=== PATIENT | female | born 1980 | race Caucasian/White ===

== ENCOUNTER 2020-12-11 13:13 | Emergency (ER) | payer BC, OTHER ==
[~2020-12-11] VITALS: Ht 162.6 cm; Wt 92.9 kg
[~2020-12-11 13:13] MED LIST: LEVO750T26 PO
--- NOTE | 2020-12-11 15:06 | NUR ---
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
--- NOTE | 2020-12-11 15:16 | NUR ---
PT ASSIGNED TO ED 06, IN AT THIS TIME
[2020-12-11] MEDS ORDERED: MORPHINE SULFATE 4 MG/ML, 1ML ONE (16:15)
[2020-12-11] MEDS ORDERED: ONDANSETRON 2MG/ML, 2ML ONE ×2 (16:15→18:38)
[2020-12-11] MEDS ORDERED: SODIUM CHLORIDE FLUSH 10ML SYR IVF ONE (16:30)
[2020-12-11] MEDS ORDERED: MORPHINE SULFATE 4 MG/ML, 1ML IVPush PRN (16:30)
[2020-12-11] MEDS ORDERED: ONDANSETRON 2MG/ML, 2ML IVPush ONE (16:30)
[2020-12-11] MEDS ORDERED: SODIUM CHLORIDE 0.9% 1,000ML IVBOLUS ONE (16:30)
--- NOTE | 2020-12-11 16:35 | NUR ---
PT SITTING UP IN GURNEY, IN MODERATE DISTRESS SECONDARY TO PAIN/VOMITING. PT REPORTS 'CONSTANT VOMITING' AND RLQ PAIN SINCE 0300 THIS AM. DENIES FEVER/BLOOD IN EMESIS OR STOOL. DENIES ABD HX/SX. 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 BP/SPO2 MONITORING IN PLACE. IV ESTABLISHED. LABS/UA COLLECTED AND SENT TO LAB. PT MEDICATED PER EMAR FOR PAIN/NAUSEA. PT/SO UPDATED TO POC AND DEMONSTRATE UNDERSTANDING
[2020-12-11 16:43] LABS: MICROSCOPIC AUTO
[2020-12-11 16:48] LABS: BASOPHILS % (AUTO) 0 % (0-1); EOSINOPHILS % (AUTO) 0 % (1-7); LYMPHOCYTES % (AUTO) 8 % (22-44); MEAN CORPUSCULAR HEMOGLOBIN 33.2 pg (27.0-34.8); MEAN CORPUSCULAR HGB CONC 34.4 g/dL (32.4-35.8); MONOCYTES % (AUTO) 2 % (2-9); NEUTROPHILS % (AUTO) 90 % (42-75); PLATELET COUNT 301 x10^3/uL (130-400); RED BLOOD COUNT 5.19 x10^6/uL (3.82-5.3); RED CELL DISTRIBUTION WIDTH 12.9 % (9.6-15.2)
[2020-12-11 16:53] LABS: ALBUMIN 4.1 g/dL (3.4-5.0); ANION GAP 13 mmol/L (5-15); CALCIUM 9.3 mg/dL (8.5-10.1); CHLORIDE 104 mmol/L (98-107)
[2020-12-11 16:58] LABS: ALANINE AMINOTRANSFERASE 42 U/L (12-78); ALKALINE PHOSPHATASE 78 U/L (45-117); BILIRUBIN,TOTAL 0.9 mg/dL (0.2-1.0); CREATININE 0.96 mg/dL (0.55-1.02); TOTAL PROTEIN 8.6 g/dL (6.4-8.2)
[2020-12-11 17:07] VITALS: BP 168/80
--- NOTE | 2020-12-11 17:07 | NUR ---
PT REPORTS SIGNIFICANT IMPROVEMNT IN NAUSEA AND PAIN WITH MEDICATIONS.
--- NOTE | 2020-12-11 17:45 | NUR ---
ERP AT BEDSIDE TO DISCUSS POC. ORDERS RECEIVED FOR CT. PT UPDATED AND DEMONSTRATES UNDERSTANDING.
--- NOTE | 2020-12-11 18:06 | NUR ---
PT REPORTS RETURN OF NAUSEA. TO CT AT THIS TIME; PT DENIES NEED FOR NAUSEA MEDICATIONS PRIOR TO CT
[2020-12-11] MEDS ORDERED: OMNIPAQUE 350 MG/ML, 100ML BOTTLE ONE (18:10)
[2020-12-11] MEDS ORDERED: MAALOX/HYOSCYAMINE/LIDOCAINE 45 ML BTL ONE (18:38)
[2020-12-11] MEDS ORDERED: ONDANSETRON ODT 4 MG ONE ×2 (18:40→18:42)
[2020-12-11] MEDS ORDERED: ONDANSETRON ODT 4 MG PO ONE (19:00)
[2020-12-11] MEDS ORDERED: MAALOX/HYOSCYAMINE/LIDOCAINE 45 ML BTL PO ONE (19:00)
--- NOTE | 2020-12-11 19:54 | NUR ---
DC EDUCATION PROVIDED, PT DEMONSTRATES UNDERSTANDING. PT AMBULATED STEADILY TO DC WITH RN AND SO. SO TO TRANSPORT PT HOME.
== END 2020-12-11 19:56 | disposition home or self-care (01) ==
LOC: ED 19:50
DX: K52.9 Noninfective gastroenteritis and colitis, unspecified (principal); R11.2 Nausea with vomiting, unspecified
CPT/HCPCS: 36415; 74021; 74177; 76830; 80053; 81001; 83690; 84703; 85025; 96361; 96374; 96375; 99285; J2270; J2405; J7030; Q0162; Q9967